=== PATIENT | female | born 1995 | race Caucasian/White ===

== ENCOUNTER 2023-03-09 17:05 | Inpatient (IN) | payer OTHER ==
--- NOTE | 2023-03-09 17:26 | NUR ---
both nares swabbed without complication.
[2023-03-09 17:32] LABS: HEMATOCRIT 38.3 % (35.0-50.0); HEMOGLOBIN 13.2 g/dL (12.0-18.0); MCH 33.4 (27-36); MCHC 34.5 g/dl (30-36); MCV 96.7 fl (81-99); RBC 3.96 M/ul (4.3-5.7); RDW 13.4 (10.5-15.0)
[2023-03-09 18:08] LABS: ABO A; RH POSITIVE
[2023-03-09 18:09] LABS: ANTIBODY SCREEN NEGATIVE
[2023-03-09 18:09] LABS: INFLUENZA B NAA NEGATIVE (NEGATIVE); RESPIRATORY SYNCYTIAL VIR NAA NEGATIVE (NEGATIVE)
[2023-03-09 22:00] VITALS: BP 119/61
[2023-03-10 05:22] LABS: HEMATOCRIT 36.1 % (35.0-50.0); HEMOGLOBIN 12.5 g/dL (12.0-18.0); MCHC 34.6 g/dl (30-36); MCV 95.6 fl (81-99); RBC 3.78 M/ul (4.3-5.7); RDW 13.3 (10.5-15.0)
--- NOTE | 2023-03-10 11:17 | PR ---
[facility] [address], [place] [address] Signed PP Progress Notes Datetime Report Generated by CPN: 03/10/2023 11:17 SUBJECTIVE: [id number] Pain: Within Normal Limits Nausea/Vomiting: Denies Flatus: Yes Vital Signs: [id number] Vital Signs: Reviewed; Within Normal Limits EXAM: Ongoing Cardiovascular: Not Done Respiratory: Not Done Abdomen/Uterus: Normal Lochia: Normal Vulva/Perineum: Not Done Breasts: Not Done CVA Tenderness: Not Done Extremities: Normal Incision: Not Applicable Progress: Normal Exam Comments: Abd: soft. Fundus firm, non tender to palpation. Below umbilicus. Musc: WINTER. No C/C/E. No erythema or palpable veins/cords. IMPRESSION/PLAN/PROCEDURES: [id number] Impression: Normal Progression Plan: Continue Present Management Procedures: None Progress Notes: 28 yo s/p . PPD #1. Doing well. Denies MORALES, CP, SOB, F/C, N/V, RUQ pain, changes in vision, vaginal discharge. Tolerating regular diet, ambulating, voding on own. Pain well controlled. A/P: Patient doing well. Baby not likely being discharged home today. Will continue inpatient monitoring of mother. Likely discharge home tomorrow AM. Signing Physician: Malcolm Mendez MD Copies: ~ *Electronically Signed* 03/10/23 1117 MALCOLM MENDEZ MD PATIENT NAME: JOE KOLBRAYMUNDO PROGRESS NOTE DATE OF : 89 PHYSICIAN: MALCOLM MENDEZ MD RPT #: [id number] REPORT IS CONFIDENTIAL AND NOT TO BE RELEASED WITHOUT AUTHORIZATION
--- NOTE | 2023-03-11 07:35 | PR ---
[facility] [address] [facility] [place], [place] [address] Signed PP Progress Notes Datetime Report Generated by CPN: 03/11/2023 07:35 SUBJECTIVE: [id number] Pain: Within Normal Limits Nausea/Vomiting: Denies Flatus: Yes Vital Signs: [id number] Vital Signs: Reviewed; Within Normal Limits EXAM: Ongoing Cardiovascular: Not Done Respiratory: Not Done Abdomen/Uterus: Abnormal Lochia: Normal Vulva/Perineum: Not Done Breasts: Not Done CVA Tenderness: Not Done Extremities: Normal Incision: Not Applicable Progress: Normal Exam Comments: Fundus firm, NT @ U-1. H/H from 03/10 12.5/36.1, plat 192k IMPRESSION/PLAN/PROCEDURES: [id number] Impression: Normal Progression Plan: Discharge Procedures: None Progress Notes: Doing well. She is ready for discharge. Signing Physician: Marissa Winston MD Copies: ~ *Electronically Signed* 03/11/23 0735 MARISSA WINSTON MD PATIENT NAME: RAYMUNDO TRUONG PROGRESS NOTE DATE OF : 89 PHYSICIAN: MARISSA WINSTON MD RPT #: [id number] REPORT IS CONFIDENTIAL AND NOT TO BE RELEASED WITHOUT AUTHORIZATION
== END 2023-03-11 17:00 | disposition home or self-care (01) | DRG 807 ==
LOC: FBCO 17:05 → FBC 17:06
PROVIDERS: ADMIT Obstetrics & Gynecology; ATTEND Obstetrics & Gynecology
PROC: 10E0XZZ Delivery of Products of Conception, External Approach (ICD-10-PCS; principal; 2023-03-09)
PROC: 0HQ9XZZ Repair Perineum Skin, External Approach (ICD-10-PCS; 2023-03-09)
DX: O62.3 Precipitate labor (principal); Z37.0 Single live birth; Z20.822 Contact with and (suspected) exposure to COVID-19; Z3A.39 39 weeks gestation of pregnancy; O70.0 First degree perineal laceration during delivery
CPT/HCPCS: 36415; 80307; 85027; 86850; 86900; 86901; 87502; A9270; C9803; U0002